=== PATIENT | female | born 1935 | race Caucasian/White ===

== ENCOUNTER 2018-07-31 13:59 | Emergency (ER) | payer OTHER ==
[~2018-07-31] VITALS: Ht 149.9 cm; Wt 64.4 kg
[2018-07-31] MEDS ORDERED: NAPROXEN500 MG PO (17:50)
== END 2018-07-31 17:58 | disposition home or self-care (01) ==
LOC: ER 13:59
DX: S80.02XA Contusion of left knee, initial encounter (principal); S80.01XA Contusion of right knee, initial encounter; S40.021A Contusion of right upper arm, initial encounter; S30.0XXA Contusion of lower back and pelvis, initial encounter; S10.83XA Contusion of other specified part of neck, initial encounter; W18.39XA Other fall on same level, initial encounter; Y93.89 Activity, other specified; Y92.59 Other trade areas as the place of occurrence of the external cause; Y99.8 Other external cause status

== ENCOUNTER 2018-08-22 13:58 | Emergency (ER) | payer OTHER ==
[~2018-08-22] VITALS: Ht 147.3 cm; Wt 67.6 kg
[~2018-08-22 13:58] MED LIST: NAPROXEN500 MG PO
[2018-08-22] MEDS ORDERED: CENTRUM SILVER1 EAC3 (14:19)
== END 2018-08-22 15:23 | disposition home or self-care (01) ==
LOC: ER 13:58
DX: M79.18 Myalgia, other site (principal)